=== PATIENT | male | born 1965 | race Asian ===

== ENCOUNTER 2022-09-11 00:10 | Inpatient (IN) | payer MEDICARE, OTHER ==
[~2022-09-11] VITALS: Ht 180.3 cm; Wt 63.0 kg
[2022-09-11] MEDS ORDERED: THIA100T74 PO (00:37)
[2022-09-11] MEDS ORDERED: METF-494 PO (00:37)
[2022-09-11] MEDS ORDERED: LORA2TAB95 PO (00:37)
[2022-09-11] MEDS ORDERED: MULT-594 PO (00:37)
[2022-09-11] MEDS ORDERED: RISP1TAB97 PO (00:37)
[2022-09-11] MEDS ORDERED: FOLI1TAB94 PO (00:37)
[2022-09-11] MEDS ORDERED: IV NORMAL SALINE 1000 ML BAG IV ONE (00:45)
--- NOTE | 2022-09-11 00:47 | NUR ---
1) Covid & MRSA taken and labor custodian was in ER took them to the lab
--- NOTE | 2022-09-11 00:48 | NUR ---
iv 0.9 % stat administered @0005hrs - to the RAC 20g
[2022-09-11 00:59] LABS: HEMATOCRIT 39.3 % (36.7-47.1); MEAN CORPUSCULAR HEMOGLOBIN 27.8 uug (23.8-33.4); MEAN CORPUSCULAR VOLUME 84.6 fL (73.0-96.2); PLATELET COUNT (AUTO) 259 K/uL (152-348)
[2022-09-11 01:19] LABS: CARBON DIOXIDE 27 mmol/L (21-32); CHLORIDE 100 mmol/L (98-107); CREATININE 0.8 mg/dL (0.6-1.3); GLUCOSE 257 mg/dL (74-106); POTASSIUM 3.9 mmol/L (3.5-5.1); UREA NITROGEN, BLOOD 12 mg/dL (7-18)
[2022-09-11 01:22] LABS: THYROID STIMULATING HORMONE 1.483 mIU/mL (0.358-3.740)
[2022-09-11 01:28] LABS: ETHANOL < 3 MG/DL (0-0)
[2022-09-11 01:36] LABS: ALANINE AMINOTRANSFERASE 28 U/L (16-63); ALKALINE PHOSPHATASE 141 U/L (50-136); ASPARTATE AMINOTRANSFERASE 13 U/L (15-37); BILIRUBIN,DIRECT 0.1 mg/dL (0.0-0.2); BILIRUBIN,TOTAL 0.2 mg/dL (0.2-1.0)
[2022-09-11 01:56] LABS: ACETAMINOPHEN < 2.0 ug/mL (10-30)
--- NOTE | 2022-09-11 02:00 | NUR ---
iv ATB administered as prescribed - iv access - saline locked.
[2022-09-11] MEDS ORDERED: IOHEXOL 300MG/ML 100 ML INFUS..BTL ONE (02:09)
[2022-09-11] MEDS ORDERED: IV NORMAL SALINE 250 ML IV ONE (02:09)
[2022-09-11] MEDS ORDERED: SWABABLE VALVE TRANSFER SET EA MC ONE (02:09)
[2022-09-11] MEDS ORDERED: ACETAMINOPHEN ES 500 MG TABLET PO ONE (02:15)
[2022-09-11] MEDS ORDERED: levoFLOXacin 750 MG/D5W 150 ML PIGGYBACK IV ONE (02:15)
[2022-09-11] MEDS ORDERED: LIDOCAINE 2% (GLYDO= UROJET) 10 ML JELLY MM ONE ×2 (02:15→02:32)
[2022-09-11] MEDS ORDERED: ACETAMINOPHEN 650 MG SUPP.RECT RC ONE ×2 (02:29→02:30)
[2022-09-11] MEDS ORDERED: levoFLOXacin 750MG/D5W 150 ML IV ONE (02:31)
[2022-09-11 03:13] LABS: *BILIRUBIN,URIN NEGATIVE (NEGATIVE); *CLARITY,URINE CLEAR (CLEAR); *COLOR,URINE YELLOW (YELLOW); *KETONES,URINE TRACE (NEGATIVE); *UROBILINOGEN,URINE 0.2 E.U./dl (NORMAL); LEUKOCYTE ESTERASE ,URINE NEGATIVE (NEGATIVE); NITRITE, URINE NEGATIVE (NEGATIVE)
[2022-09-11 03:14] LABS: *BLOOD, URINE TRACE (NEGATIVE); UGLUCOSE 3+ (NEGATIVE); WBC,URINE 0-3 /HPF (0-3)
[2022-09-11 03:15] LABS: BACTERIA,URINE NONE SEEN /HPF (NONE SEEN); SQUAMOUS EPITHELIAL CELL,UR NONE SEEN /HPF (NONE SEEN)
[2022-09-11 03:20] LABS: *AMPHETAMINE, URINE NEGATIVE (NEGATIVE); *CANNABINOID, URINE NEGATIVE (NEGATIVE); *COCCAINE, URINE POSITIVE (NEGATIVE); *OPIATE, URINE NEGATIVE (NEGATIVE); *PHENCYCLIDINE SCREEN,URINE NEGATIVE (NEGATIVE)
[2022-09-11] MEDS ORDERED: INSULIN REGULAR, HUMAN 300 UNITS/3 ML VIAL SQ PRN (03:45)
[2022-09-11] MEDS ORDERED: DEXTROSE 50% 50 ML DISP.SYRIN IV PRN (03:45)
[2022-09-11] MEDS ORDERED: ALBUTEROL SULFATE 8 GM HFA.AER.AD IH PRN (03:45)
[2022-09-11] MEDS ORDERED: ONDANSETRON 4 MG/2 ML VIAL IV PRN (03:45)
[2022-09-11] MEDS ORDERED: ACETAMINOPHEN 325 MG TABLET PO PRN (03:45)
[2022-09-11] MEDS ORDERED: INSULIN REGULAR, HUMAN 300 UNIT/3 ML VIAL SQ PRN (03:45)
[2022-09-11] MEDS: BLOOD SUGAR DIAGNOSTIC 1 EACH STRIP VI SCH ×2 (06:42→12:25)
--- NOTE | 2022-09-11 06:46 | NUR ---
1) Tried straight cath to obtain urine - however, scan indicated urine retention - therefore MD ordered langley cather. 2) Langley 12 - inserted - urine sample taken and sent and await results. 3) However, patient pulled on catheter and was bleeding - MD ordered a 3 way tape, however no small size available. 4) MD odered Langley 12 - bolus irrigation attempted and clots removed (small amounts and about 400mls of urine
--- NOTE | 2022-09-11 06:50 | NUR ---
Catheter draining clear amounts of urine - slight bleed around the penal area
--- NOTE | 2022-09-11 06:58 | NUR ---
1) Endorsed care to RN Ellie - confirmed patient is not going to room 215 but to room 211. 2) Ellie is going downstairs to level 2 - will call to confirm transfer. 3) Informed Ellie that BS at 7am was 267 - patient due insulin this morning ( has a sliding scale) 4) Patient remians clinically stable at the time of this report. 5) Will endorse care to ER day shift, who will continue to provide care accordingly.
--- NOTE | 2022-09-11 07:20 | NUR ---
Received report from Jeremiah MCKOY.
--- NOTE | 2022-09-11 07:30 | NUR ---
Received call from Ellie MCKOY, pt will be assigned to Rm 210 and will be received by Shanon MCKOY.
[2022-09-11] MEDS ORDERED: ALBUTEROL SULFATE 2.5 MG/3 ML NEBU NEB PRN (08:00)
--- NOTE | 2022-09-11 08:00 | NUR ---
Transported pt to [facility] via stretcher, accompanied by the 1:1 BRAKE ENGINEER, to Rm 208 per Ketan MCKOY. Pt was alert but disoriented, stable, V/S WNL. Connected to O2 at 2Lpm. Received by Ketan MCKOY.
--- NOTE | 2022-09-11 08:05 | NUR ---
Received from ER via [place], this 56 yo male with the diagnosis of hyperglycemia; delirium, gross hematuria and grave disability on 72 Hours Hold till 09/12/22 1340. Awake, alert, oriented x 3, answers questions appropriately, but mumbles, with eyes close, calm and cooperative with care. Vital signs taken and recorded. Routine admission care done. O2 at 2L/NC. Saline to RFE intact/patent. Monsalve catheter t drainage bag with yellow urine but noted bleeding on penile site. With 1:1 sitter at bedside. Belongings/contraband and room safety check done.
[2022-09-11 08:10] VITALS: BP 104/53
[2022-09-11] MEDS ORDERED: CEFEPIME HCL 2 G in IV DEXTROSE 5% 100 ML IV SCH (09:00)
[2022-09-11] MEDS ORDERED: FLUTICASONE/VILANTEROL 1 EACH BLST.W.DEV INH SCH (09:00)
[2022-09-11] MEDS ORDERED: CEFEPIME HCL 1 G in IV DEXTROSE 5% 50 ML IV SCH (09:00)
[2022-09-11 12:07] VITALS: BP 115/59
[2022-09-11 12:39] LABS: HEMATOCRIT 37.4 % (36.7-47.1)
--- NOTE | 2022-09-11 13:00 | NUR ---
Patient threw water pitcher when request for more food was not granted right away. Screaming when explanation given. Redirected behavior and calmed down after.
[2022-09-11 15:43] VITALS: BP 117/55
--- NOTE | 2022-09-11 16:40 | NUR ---
Cleared medically, with discharge order to MHU. Saline lock removed. Monsalve catheter removed. Report given to Aurea. Transferred via wheelchair with cyber security specialist with belongings and contraband.
[2022-09-12] MEDS ORDERED: ALBU2.5V38 IH (00:08)
[2022-09-12] MEDS ORDERED: SULF1TAB48 PO (00:08)
[2022-09-12] MEDS ORDERED: BLOO-668 IN (00:08)
[2022-09-12] MEDS ORDERED: METF-494 PO (00:08)
[2022-09-12] MEDS ORDERED: GLIP5TAB13 PO (00:08)
[2022-09-12] MEDS ORDERED: FLUT1BLS IH (00:08)
[2022-09-12] MEDS ORDERED: METF-440 PO (14:16)
== END 2022-09-11 17:02 | DRG 637 ==
LOC: EDBD 00:10 → ER 00:29 → TELE 07:44 → GPS 16:49 → TELE 16:58
DX: E11.65 Type 2 diabetes mellitus with hyperglycemia (principal); G93.41 Metabolic encephalopathy; N39.0 Urinary tract infection, site not specified; Z68.1 Body mass index [BMI] 19.9 or less, adult; E44.0 Moderate protein-calorie malnutrition; Z59.00 Homelessness unspecified; E88.09 Other disorders of plasma-protein metabolism, not elsewhere classified; F12.90 Cannabis use, unspecified, uncomplicated; F14.90 Cocaine use, unspecified, uncomplicated; F31.9 Bipolar disorder, unspecified; Z20.822 Contact with and (suspected) exposure to COVID-19; Z79.84 Long term (current) use of oral hypoglycemic drugs
CPT/HCPCS: 36415; 51702; 70450; 71045; 84443; 84484; 85018; 85025; 93005; G0378; G0480; J0692; J1815; J1956; J7040; Q9967

== ENCOUNTER 2022-09-11 18:04 | Inpatient (IN) | payer MEDICARE, OTHER ==
[~2022-09-11] VITALS: Ht 180.3 cm; Wt 71.7 kg
[~2022-09-11 18:04] MED LIST: FOLI1TAB94 PO; LORA2TAB95 PO; METF-494 PO; MULT-594 PO; RISP1TAB97 PO; THIA100T74 PO
[2022-09-11 18:10] VITALS: BP 106/62
[2022-09-11] MEDS ORDERED: MAG HYDROX/AL HYDROX/SIMETH 30 ML LIQUID UDC PO PRN (18:15)
[2022-09-11] MEDS ORDERED: BLOOD SUGAR DIAGNOSTIC 1 EACH STRIP VI ONE (18:15)
[2022-09-11] MEDS ORDERED: MAGNESIUM HYDROXIDE 30 ML LIQUID UDC PO PRN (18:15)
--- NOTE | 2022-09-11 18:21 | NUR ---
Admitted a case of 56 years old male from 4th floor [facility] with history of Hyperglycemia, UTI, acute encephalopathy, bipolar. patient is on 5150 hold status. Patient arrived in a wheel chair accompanied by RN. Initial report given by Shantel MCKOY. On admission patient was cooperative to physical assessment and vital signs. Skin body assessment revealed right toe wound, documented in his chart, wound consult was ordered. Vital signs within normal limits. Patient ambulates with assistance, unsteady gait. Upon face to face, patient is oriented to person and place, confused at times, demanding, fixated on food and snacks, redirectable. Patient denies any suicidal ideations nor any hallucinations or delusions at this moment. Patient was offered brief orientation to unit rules and policies and given copy of patient's rights handbook. Patient belongings were accounted and contrabands removed. Psychiatrist Edgard and Medical physician Robb Burnham were informed and orders were carried out. Patient is free from pain or any discomfort. Bed alarm, side rails up, wheel locks on, safety checks every 15 minutes implemented.
[2022-09-11] MEDS: CLONAZEPAM 0.5 MG TABLET PO PRN (20:42)
--- NOTE | 2022-09-11 20:45 | NUR ---
GPS: Pt.is angry,irritable,agitated,verbally abusive and constantly demanding for food/snacks. Constant re-direction provided by staff. Poor insight to present situation. Non-compliant with his diet. made aware of med.recon needs to be done. Pt.also went to the bathroom to void and noted with moderate amts.of hematuria. Fluids encouraged and carlos.well. Safe environment provided. Behavior monitoring continues. Klonopin 0.5mg PO given at this time.
[2022-09-11 20:53] VITALS: BP 121/58
[2022-09-11] MEDS: TEMAZEPAM 7.5 MG CAPSULE PO PRN (23:31)
[2022-09-11] MEDS: ACETAMINOPHEN 325 MG TABLET PO PRN (23:32)
[2022-09-12] MEDS ORDERED: METF-494 PO (00:08)
[2022-09-12] MEDS ORDERED: SULF1TAB48 PO (00:08)
[2022-09-12] MEDS ORDERED: ALBU2.5V38 IH (00:08)
[2022-09-12] MEDS ORDERED: GLIP5TAB13 PO (00:08)
[2022-09-12] MEDS ORDERED: BLOO-668 IN (00:08)
[2022-09-12] MEDS ORDERED: FLUT1BLS IH (00:08)
--- NOTE | 2022-09-12 06:00 | NUR ---
GPS: Pt.now awake. Less irritable,angry but still with labile mood. Unit rules as well as meal schedules explained to pt.once again and verbalized understanding. Assisted to the bathroom and voided freely clear yellowish colored urine. No further hematuria noted at this time. Safety emphasized. Re-directed prn. Will continue to monitor.
[2022-09-12 07:30] VITALS: BP 108/71
[2022-09-12 07:48] LABS: HEMATOCRIT 38.6 % (36.7-47.1); MEAN CORPUSCULAR HEMOGLOBIN 28.2 uug (23.8-33.4); MEAN CORPUSCULAR VOLUME 85.4 fL (73.0-96.2); PLATELET COUNT (AUTO) 277 K/uL (152-348)
[2022-09-12 07:54] LABS: CREATININE 0.8 mg/dL (0.6-1.3); POTASSIUM 4.5 mmol/L (3.5-5.1)
[2022-09-12] MEDS ORDERED: DEXTROSE 50% 50 ML DISP.SYRIN IV PRN (09:00)
--- NOTE | 2022-09-12 10:00 | NUR ---
DI Initial Discharge Note: Pt currently appears homeless and does not recall a last address. Pt did not have any family contact information at this time. DI will continue to work with pt and MD to ensure a safe and proper discharge plan.
--- NOTE | 2022-09-12 10:08 | NUR ---
Firearms Report: Electric Truck Operator completed and submitted a [employer] firearms report for 5150 grave disability certifications. A copy of report has been placed in patient chart.
[2022-09-12] MEDS: BLOOD SUGAR DIAGNOSTIC 1 EACH STRIP VI SCH ×3 (11:48→20:37)
[2022-09-12] MEDS: INSULIN REGULAR, HUMAN 300 UNIT/3 ML VIAL SQ PRN ×3 (12:06→17:30)
--- NOTE | 2022-09-12 12:10 | NUR ---
Patient's blood glucose is 595, Cold Meat Cook was informed, and ordered 10 units of regular insulin
--- NOTE | 2022-09-12 12:42 | NUR ---
WOUND CARE CONSULT; PT PRESENTS WITH REDNESS/DRY WOUND TO RT GREAT TOE AMPUTATION SITE, PRESENT ON ADMISSION. PT SCREAMING, ANGRY AND AGITATED. DPM CONSULT CALLED TO DR BELCZYK. BRYSON IN AGREEMENT WITH PLAN OF CARE.
[2022-09-12] MEDS: CLONAZEPAM 0.5 MG TABLET PO PRN ×2 (13:15→20:32)
[2022-09-12] MEDS ORDERED: OLANZAPINE ZYDIS 5 MG TAB.RAPDIS PO SCH (14:15)
[2022-09-12] MEDS ORDERED: METF-440 PO (14:16)
[2022-09-12] MEDS: DIVALPROEX 250 MG TABLET.DR PO SCH ×2 (14:37→20:32)
[2022-09-12] MEDS: risperiDONE 1 MG TABLET PO SCH ×2 (14:37→20:32)
[2022-09-12 16:00] VITALS: BP 115/64
--- NOTE | 2022-09-12 16:22 | NUR ---
Patient has crying spells, depressed, fixated on food and snacks, anxious and agitated at times, pacing in the hallway looking for food, not engaged in group activities. A/O X Emotional support provided. Fall and safety precautions implemented.
--- NOTE | 2022-09-12 16:46 | NUR ---
Patient blood glucose exceeds 600 reading. Gum Remover was informed and ordered 15 units of regular insulin, blood glucose will be recheck in 30 minutes.
[2022-09-12] MEDS: METFORMIN HCL 500 MG TABLET PO SCH (17:16)
[2022-09-12] MEDS: glipiZIDE 5 MG TABLET PO SCH (17:17)
[2022-09-12] MEDS: SULFAMETH/TRIMETH 800/160 MG TABLET PO SCH (17:17)
--- NOTE | 2022-09-12 17:26 | NUR ---
Patient blood glucose is still over 600, glipizide and metformin given as scheduled. Shelter Advocate informed and prescribed 10 units more of regular insulin.
[2022-09-12] MEDS ORDERED: HALOPERIDOL LACTATE 5 MG/1 ML VIAL IM ONE (18:00)
[2022-09-12] MEDS ORDERED: LORAZEPAM 2 MG/1 ML VIAL IM ONE (18:00)
[2022-09-12] MEDS ORDERED: diphenhydrAMINE 50 MG/1 ML VIAL IM ONE (18:00)
--- NOTE | 2022-09-12 18:22 | NUR ---
Patient became aggressive, agitated, combative, striking out to others, throwing food on the floor while visitors and other patients were next to him in the dinning area. Psychiatrist was called and ordered Ativan 2 mg IM, Haldol 5 mg IM, Benadryl 25 mg IM. Security was called and 5 people were necessary to administer the medication, but no force needed. Reassurance given. Fall and safety precautions implemented.
[2022-09-12 20:19] VITALS: BP 100/61
[2022-09-12] MEDS: INSULIN REGULAR, HUMAN 300 UNITS/3 ML VIAL SQ PRN (20:37)
[2022-09-12] MEDS: INSULIN GLARGINE,HUM 300 UNITS/3 ML CARTRIDGE SQ SCH (20:41)
[2022-09-13] MEDS: TEMAZEPAM 7.5 MG CAPSULE PO PRN ×2 (01:34→23:31)
--- NOTE | 2022-09-13 02:23 | NUR ---
Received patient in the Sary chair. Restless and demanding food. The blood sugar was checked and elevated. Insulin was given per order. The sugar was rechecked a hour later and still was elevated. Sanju Vargas OUTSIDE MAINTENANCE WORKER was notified. No new orders needed. The patient was anxious, loud and restless despite receiving an IM injection on the last shift. PRN medications given as needed. Safety Stratiges are in place, VS are stable. Patient assisted out of bed to the bathroom once so far. Continuing to monitor for behavior escalation and compliance. No acute issues at this time.
[2022-09-13] MEDS: BLOOD SUGAR DIAGNOSTIC 1 EACH STRIP VI SCH ×4 (06:16→20:44)
[2022-09-13] MEDS: INSULIN REGULAR, HUMAN 300 UNIT/3 ML VIAL SQ PRN ×3 (07:29→17:02)
[2022-09-13 08:04] VITALS: BP 109/57
[2022-09-13] MEDS: SULFAMETH/TRIMETH 800/160 MG TABLET PO SCH ×2 (08:08→16:36)
[2022-09-13] MEDS: risperiDONE 1 MG TABLET PO SCH ×2 (08:08→20:44)
[2022-09-13] MEDS: METFORMIN HCL 500 MG TABLET PO SCH ×2 (08:08→17:06)
[2022-09-13] MEDS: glipiZIDE 5 MG TABLET PO SCH ×2 (08:08→16:36)
[2022-09-13] MEDS: DIVALPROEX 250 MG TABLET.DR PO SCH ×3 (08:08→16:36)
[2022-09-13] MEDS: THIAMINE HCL 100 MG TABLET PO SCH (08:10)
[2022-09-13] MEDS: FLUTICASONE/VILANTEROL 1 EACH BLST.W.DEV IH SCH (08:10)
[2022-09-13] MEDS: FOLIC ACID 1 MG TABLET PO SCH (08:10)
[2022-09-13] MEDS: MULTIVITAMINS,THERAPEUTIC TABLET PO SCH (08:10)
[2022-09-13] MEDS: INSULIN GLARGINE,HUM 300 UNITS/3 ML CARTRIDGE SQ SCH ×2 (08:19→20:52)
[2022-09-13] MEDS ORDERED: OLANZAPINE 10 MG VIAL IM ONE (13:15)
[2022-09-13 16:25] VITALS: BP 132/69
[2022-09-13] MEDS: INSULIN REGULAR, HUMAN 300 UNITS/3 ML VIAL SQ PRN (20:47)
[2022-09-13 21:18] VITALS: BP 132/76
--- NOTE | 2022-09-14 06:45 | NUR ---
GPS: Pt's blood sugar was checked at this time and registered as "HI". Discovered pt.to have eaten snacks/juices that he has stashed. Pt.is non-compliant with his diet and was even witnessed to have been going through the trash last night to find uneaten food. Dr. Kwon notified. Awaiting MD to call back. Pt.placed on a chang-chair in front of nurses station for close observation.
[2022-09-14] MEDS: INSULIN REGULAR, HUMAN 300 UNIT/3 ML VIAL SQ PRN ×4 (07:01→21:41)
[2022-09-14] MEDS: BLOOD SUGAR DIAGNOSTIC 1 EACH STRIP VI SCH ×5 (07:03→21:50)
[2022-09-14 07:56] VITALS: BP 137/74
[2022-09-14] MEDS: glipiZIDE 5 MG TABLET PO SCH ×2 (08:50→16:42)
[2022-09-14] MEDS: SULFAMETH/TRIMETH 800/160 MG TABLET PO SCH ×2 (08:50→16:42)
[2022-09-14] MEDS: THIAMINE HCL 100 MG TABLET PO SCH (08:50)
[2022-09-14] MEDS: FOLIC ACID 1 MG TABLET PO SCH (08:50)
[2022-09-14] MEDS: METFORMIN HCL 500 MG TABLET PO SCH ×2 (08:50→16:44)
[2022-09-14] MEDS: DIVALPROEX 250 MG TABLET.DR PO SCH ×3 (08:50→16:55)
[2022-09-14] MEDS: risperiDONE 1 MG TABLET PO SCH ×3 (08:50→16:43)
[2022-09-14] MEDS: MULTIVITAMINS,THERAPEUTIC TABLET PO SCH (08:50)
[2022-09-14] MEDS: FLUTICASONE/VILANTEROL 1 EACH BLST.W.DEV IH SCH (08:51)
[2022-09-14] MEDS: INSULIN GLARGINE,HUM 300 UNITS/3 ML CARTRIDGE SQ SCH ×2 (08:53→21:39)
[2022-09-14 16:40] VITALS: BP 127/64
--- NOTE | 2022-09-14 18:09 | NUR ---
Received patient is alert and oriented x3-4,fixated on food and snacks, anxious and agitated at times, pacing in the hallway looking for food,attempted to break refrigerator for more food to eat, Acc-check done with insulin sliding scale covered not engaged in group activities. Fall and safety precautions implemented.
[2022-09-14 20:04] VITALS: BP 132/72
[2022-09-14] MEDS: CLONAZEPAM 0.5 MG TABLET PO PRN (21:50)
[2022-09-15] MEDS: CLONAZEPAM 0.5 MG TABLET PO PRN ×4 (01:44→20:35)
[2022-09-15] MEDS: TEMAZEPAM 7.5 MG CAPSULE PO PRN (01:44)
--- NOTE | 2022-09-15 01:47 | NUR ---
Even after repeated education on DMII, his extremely elevated RBS findings, patient continues to ask/beg for, and steal food from other residents rooms, the garbage bags. Pt even broke into the unit's refrigerator. Staff on this shift resorted in removing all food from the refrigerator in the recreational room and transferred into the refrigerator in the nursing office for safe keeping. Pt does not care weather or not he is breaking the unit's rules, and refuses to obey direction from staff regarding over-eating.
[2022-09-15] MEDS: BLOOD SUGAR DIAGNOSTIC 1 EACH STRIP VI SCH ×4 (08:09→20:44)
[2022-09-15 08:10] VITALS: BP 130/74
[2022-09-15] MEDS: INSULIN REGULAR, HUMAN 300 UNIT/3 ML VIAL SQ PRN ×4 (08:25→20:40)
[2022-09-15] MEDS: INSULIN GLARGINE,HUM 300 UNITS/3 ML CARTRIDGE SQ SCH ×2 (08:26→20:41)
[2022-09-15] MEDS: FOLIC ACID 1 MG TABLET PO SCH (08:28)
[2022-09-15] MEDS: DIVALPROEX 250 MG TABLET.DR PO SCH ×3 (08:28→17:17)
[2022-09-15] MEDS: glipiZIDE 5 MG TABLET PO SCH ×2 (08:28→17:18)
[2022-09-15] MEDS: METFORMIN HCL 500 MG TABLET PO SCH ×2 (08:29→17:18)
[2022-09-15] MEDS: SULFAMETH/TRIMETH 800/160 MG TABLET PO SCH ×2 (08:29→17:18)
[2022-09-15] MEDS: THIAMINE HCL 100 MG TABLET PO SCH (08:29)
[2022-09-15] MEDS: MULTIVITAMINS,THERAPEUTIC TABLET PO SCH (08:29)
[2022-09-15] MEDS: risperiDONE 1 MG TABLET PO SCH ×3 (08:29→17:18)
[2022-09-15] MEDS: FLUTICASONE/VILANTEROL 1 EACH BLST.W.DEV IH SCH (08:30)
[2022-09-15] MEDS: SODIUM HYPOCHLORITE 0.125% (QUARTER STRENGTH) 473 ML BOTTLE TP SCH (08:31)
[2022-09-15] MEDS: SILVER SULFADIAZINE 1% CREAM 50 GM TP SCH (08:31)
[2022-09-15 16:10] VITALS: BP 96/66
--- NOTE | 2022-09-15 18:06 | NUR ---
patient is alert and oriented x3-4,fixated on food and snacks, anxious and agitated at times, pacing in the hallway looking for food and snacks,joan compliant today with medication and food.
[2022-09-15 19:49] VITALS: BP 110/68
[2022-09-15] MEDS: ACETAMINOPHEN 325 MG TABLET PO PRN (20:35)
[2022-09-16] MEDS: TEMAZEPAM 7.5 MG CAPSULE PO PRN (01:58)
[2022-09-16] MEDS: CLONAZEPAM 0.5 MG TABLET PO PRN ×3 (01:58→20:57)
--- NOTE | 2022-09-16 02:06 | NUR ---
Pt is non-compliant with POC r/t a controlled carbohydrate diet d/t elevated RBS findings. Pt refuses to be re-directed and continues to beg for food/snacks. Pt becomes verbally assaultive and irritable towards staff when trying to be educated on the importance of not over-eating d/t his current condition.
[2022-09-16] MEDS: BLOOD SUGAR DIAGNOSTIC 1 EACH STRIP VI SCH ×4 (06:13→20:49)
[2022-09-16 08:00] VITALS: BP 111/62
[2022-09-16] MEDS: METFORMIN HCL 500 MG TABLET PO SCH ×2 (09:22→17:02)
[2022-09-16] MEDS: FOLIC ACID 1 MG TABLET PO SCH (09:22)
[2022-09-16] MEDS: DIVALPROEX 250 MG TABLET.DR PO SCH ×3 (09:22→16:55)
[2022-09-16] MEDS: MULTIVITAMINS,THERAPEUTIC TABLET PO SCH (09:22)
[2022-09-16] MEDS: glipiZIDE 5 MG TABLET PO SCH ×2 (09:22→16:52)
[2022-09-16] MEDS: SULFAMETH/TRIMETH 800/160 MG TABLET PO SCH ×2 (09:22→16:52)
[2022-09-16] MEDS: risperiDONE 1 MG TABLET PO SCH ×3 (09:22→16:52)
[2022-09-16] MEDS: FLUTICASONE/VILANTEROL 1 EACH BLST.W.DEV IH SCH (09:23)
[2022-09-16] MEDS: THIAMINE HCL 100 MG TABLET PO SCH (09:24)
[2022-09-16] MEDS: SILVER SULFADIAZINE 1% CREAM 50 GM TP SCH (09:25)
[2022-09-16] MEDS: INSULIN REGULAR, HUMAN 300 UNIT/3 ML VIAL SQ PRN ×4 (09:28→20:55)
[2022-09-16] MEDS: INSULIN GLARGINE,HUM 300 UNITS/3 ML CARTRIDGE SQ SCH ×2 (09:43→20:56)
--- NOTE | 2022-09-16 10:30 | NUR ---
DI PC Hearing: Patient had 5250 probable cause hearing today and it was upheld for grave disability.
[2022-09-16] MEDS: SODIUM HYPOCHLORITE 0.125% (QUARTER STRENGTH) 473 ML BOTTLE TP SCH (10:47)
--- NOTE | 2022-09-16 15:04 | NUR ---
Received patient pacing in the hallway. A/O X 3 to person, place, situation. Patient is cooperative with nursing care and compliant with medications. Patient gets irritable and anxious at times. Klonopin 0.5 mg is given at 13:09, will be monitored for effectiveness. Patient blood glucose is 381, 15 units of regular insulin is given per sliding scale. Patient is encourage to verbalize concerns. Fall and safety precautions implemented..
[2022-09-16 16:04] VITALS: BP 123/72
[2022-09-16 20:01] VITALS: BP 110/68
[2022-09-17] MEDS: BLOOD SUGAR DIAGNOSTIC 1 EACH STRIP VI SCH ×4 (05:56→20:30)
[2022-09-17 07:30] VITALS: BP 115/74
[2022-09-17] MEDS: glipiZIDE 5 MG TABLET PO SCH ×2 (08:51→16:20)
[2022-09-17] MEDS: DIVALPROEX 250 MG TABLET.DR PO SCH ×3 (08:51→16:20)
[2022-09-17] MEDS: FOLIC ACID 1 MG TABLET PO SCH (08:52)
[2022-09-17] MEDS: SULFAMETH/TRIMETH 800/160 MG TABLET PO SCH ×2 (08:52→16:20)
[2022-09-17] MEDS: risperiDONE 1 MG TABLET PO SCH ×3 (08:52→16:20)
[2022-09-17] MEDS: METFORMIN HCL 500 MG TABLET PO SCH ×2 (08:52→17:07)
[2022-09-17] MEDS: FLUTICASONE/VILANTEROL 1 EACH BLST.W.DEV IH SCH (08:52)
[2022-09-17] MEDS: THIAMINE HCL 100 MG TABLET PO SCH (08:52)
[2022-09-17] MEDS: MULTIVITAMINS,THERAPEUTIC TABLET PO SCH (08:52)
[2022-09-17] MEDS: INSULIN REGULAR, HUMAN 300 UNIT/3 ML VIAL SQ PRN ×3 (08:55→17:07)
[2022-09-17] MEDS: SODIUM HYPOCHLORITE 0.125% (QUARTER STRENGTH) 473 ML BOTTLE TP SCH (08:56)
[2022-09-17] MEDS: SILVER SULFADIAZINE 1% CREAM 50 GM TP SCH (08:56)
[2022-09-17] MEDS: INSULIN GLARGINE,HUM 300 UNITS/3 ML CARTRIDGE SQ SCH ×2 (09:03→20:33)
--- NOTE | 2022-09-17 11:00 | NUR ---
Patient is bleeding from his penis, and states that is burning when he urinates, Seed Cleaner Operator was informed, no further orders given.
[2022-09-17] MEDS: CLONAZEPAM 0.5 MG TABLET PO PRN (13:15)
--- NOTE | 2022-09-17 14:58 | NUR ---
Received patient pacing in the hallway. A/O X 3 to person, place, environment. Patient is compliant with medications. Patient gets irritable when snacks are not given. Klonopin 0.5 mg is given at 13:15, effective. Patient blood glucose is 234, 6 units of regular insulin is given per sliding scale. Patient is encourage to vent feelings and emotions. Fall and safety precautions implemented..
[2022-09-17 16:00] VITALS: BP 108/56
[2022-09-17 20:17] VITALS: BP 119/67
[2022-09-17] MEDS: INSULIN REGULAR, HUMAN 300 UNITS/3 ML VIAL SQ PRN (20:31)
[2022-09-17] MEDS: TEMAZEPAM 7.5 MG CAPSULE PO PRN (23:35)
--- NOTE | 2022-09-18 06:41 | NUR ---
GPS: Pt.slept 6 hrs.last night. B.S. at this time is 261mg/dl. Continues to be fixated on food/snacks. Re-directed prn. Continues health teachings given by staff regarding importance of adhering to his diet. Needs attended. Will continue to monitor.
[2022-09-18] MEDS: BLOOD SUGAR DIAGNOSTIC 1 EACH STRIP VI SCH ×4 (06:45→20:43)
[2022-09-18 07:30] VITALS: BP 115/63
[2022-09-18] MEDS: glipiZIDE 5 MG TABLET PO SCH ×2 (08:21→16:44)
[2022-09-18] MEDS: METFORMIN HCL 500 MG TABLET PO SCH ×2 (08:21→18:17)
[2022-09-18] MEDS: MULTIVITAMINS,THERAPEUTIC TABLET PO SCH (08:21)
[2022-09-18] MEDS: DIVALPROEX 250 MG TABLET.DR PO SCH ×3 (08:21→16:45)
[2022-09-18] MEDS: SULFAMETH/TRIMETH 800/160 MG TABLET PO SCH ×2 (08:21→16:45)
[2022-09-18] MEDS: FOLIC ACID 1 MG TABLET PO SCH (08:21)
[2022-09-18] MEDS: THIAMINE HCL 100 MG TABLET PO SCH (08:21)
[2022-09-18] MEDS: risperiDONE 1 MG TABLET PO SCH ×3 (08:21→16:45)
[2022-09-18] MEDS: SILVER SULFADIAZINE 1% CREAM 50 GM TP SCH (08:22)
[2022-09-18] MEDS: FLUTICASONE/VILANTEROL 1 EACH BLST.W.DEV IH SCH (08:22)
[2022-09-18] MEDS: SODIUM HYPOCHLORITE 0.125% (QUARTER STRENGTH) 473 ML BOTTLE TP SCH (08:22)
[2022-09-18] MEDS: INSULIN REGULAR, HUMAN 300 UNIT/3 ML VIAL SQ PRN ×3 (08:31→18:18)
[2022-09-18] MEDS: INSULIN GLARGINE,HUM 300 UNITS/3 ML CARTRIDGE SQ SCH ×2 (08:34→20:49)
--- NOTE | 2022-09-18 15:04 | NUR ---
Received patient sleeping in his room. A/O X 1 to person. Patient is needy, demanding, fixated on snacks, cooperative with nursing care, compliant with medications. Patient blood glucose 233, 6 units of regular insulin given per sliding scale. Ambulates independently. Requires minimal assistance with ADL. Patient is encourage to vent feelings and emotions. Fall and safety precautions implemented. Addendum: 09/18/22 at 1515 by MAMADOU DELGADO RN Patient is A/O X 3 to person, place, situation.
[2022-09-18 16:00] VITALS: BP 128/74
[2022-09-18 20:09] VITALS: BP 115/64
[2022-09-18] MEDS: INSULIN REGULAR, HUMAN 300 UNITS/3 ML VIAL SQ PRN (20:46)
[2022-09-19] MEDS: TEMAZEPAM 7.5 MG CAPSULE PO PRN ×2 (00:53→20:52)
[2022-09-19] MEDS: BLOOD SUGAR DIAGNOSTIC 1 EACH STRIP VI SCH ×4 (06:53→20:34)
[2022-09-19 07:30] VITALS: BP 111/68
[2022-09-19] MEDS: INSULIN GLARGINE,HUM 300 UNITS/3 ML CARTRIDGE SQ SCH ×2 (08:35→20:44)
[2022-09-19] MEDS: INSULIN REGULAR, HUMAN 300 UNIT/3 ML VIAL SQ PRN ×3 (08:37→17:16)
[2022-09-19] MEDS: glipiZIDE 5 MG TABLET PO SCH ×2 (08:38→17:17)
[2022-09-19] MEDS: SULFAMETH/TRIMETH 800/160 MG TABLET PO SCH (08:38)
[2022-09-19] MEDS: CLONAZEPAM 0.5 MG TABLET PO PRN (08:38)
[2022-09-19] MEDS: METFORMIN HCL 500 MG TABLET PO SCH ×2 (08:38→17:18)
[2022-09-19] MEDS: FLUTICASONE/VILANTEROL 1 EACH BLST.W.DEV IH SCH (08:39)
[2022-09-19] MEDS: FOLIC ACID 1 MG TABLET PO SCH (08:39)
[2022-09-19] MEDS: risperiDONE 1 MG TABLET PO SCH ×3 (08:39→17:17)
[2022-09-19] MEDS: THIAMINE HCL 100 MG TABLET PO SCH (08:39)
[2022-09-19] MEDS: MULTIVITAMINS,THERAPEUTIC TABLET PO SCH (08:39)
[2022-09-19] MEDS: DIVALPROEX 250 MG TABLET.DR PO SCH ×3 (08:40→17:17)
[2022-09-19] MEDS: SODIUM HYPOCHLORITE 0.125% (QUARTER STRENGTH) 473 ML BOTTLE TP SCH (08:40)
[2022-09-19] MEDS: SILVER SULFADIAZINE 1% CREAM 50 GM TP SCH (08:41)
[2022-09-19 16:00] VITALS: BP 129/71
--- NOTE | 2022-09-19 16:26 | NUR ---
patient is alert and oriented x3-4,fixated on food and snacks, anxious and agitated at times, pacing in the hallway looking for food, Acc-check done with insulin sliding scale covered not engaged in group activities. Fall and safety precautions implemented.
[2022-09-19] MEDS: INSULIN REGULAR, HUMAN 300 UNITS/3 ML VIAL SQ PRN (20:39)
[2022-09-19 21:05] VITALS: BP 129/68
[2022-09-20] MEDS: CLONAZEPAM 0.5 MG TABLET PO PRN ×4 (03:15→21:05)
[2022-09-20] MEDS: BLOOD SUGAR DIAGNOSTIC 1 EACH STRIP VI SCH ×4 (06:26→20:57)
[2022-09-20] MEDS: INSULIN GLARGINE,HUM 300 UNITS/3 ML CARTRIDGE SQ SCH ×2 (08:11→21:05)
[2022-09-20] MEDS: INSULIN REGULAR, HUMAN 300 UNIT/3 ML VIAL SQ PRN ×4 (08:13→21:02)
[2022-09-20] MEDS: risperiDONE 1 MG TABLET PO SCH ×3 (08:15→16:15)
[2022-09-20] MEDS: FOLIC ACID 1 MG TABLET PO SCH (08:15)
[2022-09-20] MEDS: THIAMINE HCL 100 MG TABLET PO SCH (08:15)
[2022-09-20] MEDS: glipiZIDE 5 MG TABLET PO SCH ×2 (08:15→16:15)
[2022-09-20] MEDS: METFORMIN HCL 500 MG TABLET PO SCH ×2 (08:15→16:15)
[2022-09-20] MEDS: MULTIVITAMINS,THERAPEUTIC TABLET PO SCH (08:15)
[2022-09-20] MEDS: DIVALPROEX 250 MG TABLET.DR PO SCH ×3 (08:15→16:48)
[2022-09-20] MEDS: SODIUM HYPOCHLORITE 0.125% (QUARTER STRENGTH) 473 ML BOTTLE TP SCH (08:16)
[2022-09-20] MEDS: FLUTICASONE/VILANTEROL 1 EACH BLST.W.DEV IH SCH (08:16)
[2022-09-20] MEDS: SILVER SULFADIAZINE 1% CREAM 50 GM TP SCH (08:16)
--- NOTE | 2022-09-20 15:11 | NUR ---
Patient is alert and oriented Med.compliant. Remains non-compliant with his diet. blood sugar monitoring with sliding scale covered Safety emphasized.
[2022-09-20 16:08] VITALS: BP 117/70
[2022-09-20 20:24] VITALS: BP 121/58
--- NOTE | 2022-09-21 04:48 | NUR ---
Pt is compliant taking medications and receiving treatment. Pt still continues to beg for more food and snacks. After repeated re-education and re-direction, pt can becomes compliant.
[2022-09-21 08:20] VITALS: BP 121/68
[2022-09-21] MEDS: BLOOD SUGAR DIAGNOSTIC 1 EACH STRIP VI SCH ×4 (08:21→21:02)
[2022-09-21] MEDS: glipiZIDE 5 MG TABLET PO SCH ×2 (08:48→16:48)
[2022-09-21] MEDS: METFORMIN HCL 500 MG TABLET PO SCH ×2 (08:48→17:12)
[2022-09-21] MEDS: THIAMINE HCL 100 MG TABLET PO SCH (08:48)
[2022-09-21] MEDS: DIVALPROEX 250 MG TABLET.DR PO SCH (08:49)
[2022-09-21] MEDS: MULTIVITAMINS,THERAPEUTIC TABLET PO SCH (08:49)
[2022-09-21] MEDS: SILVER SULFADIAZINE 1% CREAM 50 GM TP SCH (08:49)
[2022-09-21] MEDS: risperiDONE 1 MG TABLET PO SCH ×3 (08:49→16:48)
[2022-09-21] MEDS: FOLIC ACID 1 MG TABLET PO SCH (08:49)
[2022-09-21] MEDS: SODIUM HYPOCHLORITE 0.125% (QUARTER STRENGTH) 473 ML BOTTLE TP SCH (08:50)
[2022-09-21] MEDS: INSULIN REGULAR, HUMAN 300 UNIT/3 ML VIAL SQ PRN ×4 (08:55→20:40)
[2022-09-21] MEDS: FLUTICASONE/VILANTEROL 1 EACH BLST.W.DEV IH SCH (08:56)
[2022-09-21] MEDS: INSULIN GLARGINE,HUM 300 UNITS/3 ML CARTRIDGE SQ SCH ×2 (09:04→20:42)
[2022-09-21] MEDS: CLONAZEPAM 0.5 MG TABLET PO PRN ×2 (12:36→20:35)
--- NOTE | 2022-09-21 12:45 | NUR ---
Patient blood glucose is 414, Medical Lab Specialist ordered 20 units of regular insulin.
--- NOTE | 2022-09-21 14:33 | NUR ---
Received patient awake in the hallway. Patient is A/O X 3 to person, place, situation. Patient is fixated on food and snacks, demanding, needy, complaint with medications. Patient ambulates without assistance, requires minimal assistance with ADL, continent. Patient is encourage to verbalize concerns. Fall and safety precautions implemented.
[2022-09-21 16:16] VITALS: BP 129/76
[2022-09-21] MEDS: DIVALPROEX 500 MG TABLET.DR PO SCH (16:47)
[2022-09-21] MEDS ORDERED: DIVALPROEX 250 MG TABLET.DR PO SCH (17:00)
[2022-09-21 19:56] VITALS: BP 132/66
[2022-09-21] MEDS: ACETAMINOPHEN 325 MG TABLET PO PRN (20:34)
[2022-09-22] MEDS: TEMAZEPAM 7.5 MG CAPSULE PO PRN (00:07)
[2022-09-22] MEDS: BLOOD SUGAR DIAGNOSTIC 1 EACH STRIP VI SCH ×4 (06:24→20:27)
[2022-09-22 07:51] VITALS: BP 137/83
[2022-09-22] MEDS: INSULIN GLARGINE,HUM 300 UNITS/3 ML CARTRIDGE SQ SCH ×2 (08:25→20:33)
[2022-09-22] MEDS: INSULIN REGULAR, HUMAN 300 UNIT/3 ML VIAL SQ PRN ×3 (08:27→17:49)
[2022-09-22] MEDS: METFORMIN HCL 500 MG TABLET PO SCH ×2 (08:39→17:49)
[2022-09-22] MEDS: FOLIC ACID 1 MG TABLET PO SCH (08:39)
[2022-09-22] MEDS: DIVALPROEX 500 MG TABLET.DR PO SCH ×2 (08:39→17:49)
[2022-09-22] MEDS: glipiZIDE 5 MG TABLET PO SCH ×2 (08:39→17:50)
[2022-09-22] MEDS: MULTIVITAMINS,THERAPEUTIC TABLET PO SCH (08:39)
[2022-09-22] MEDS: risperiDONE 1 MG TABLET PO SCH ×3 (08:39→17:49)
[2022-09-22] MEDS: FLUTICASONE/VILANTEROL 1 EACH BLST.W.DEV IH SCH (08:40)
[2022-09-22] MEDS: THIAMINE HCL 100 MG TABLET PO SCH (08:41)
[2022-09-22] MEDS: SODIUM HYPOCHLORITE 0.125% (QUARTER STRENGTH) 473 ML BOTTLE TP SCH (08:42)
[2022-09-22] MEDS: SILVER SULFADIAZINE 1% CREAM 50 GM TP SCH (08:42)
[2022-09-22 16:09] VITALS: BP 115/69
[2022-09-22] MEDS: CLONAZEPAM 0.5 MG TABLET PO PRN (17:49)
--- NOTE | 2022-09-22 18:24 | NUR ---
Patient is alert and oriented Med.compliant. Remains non-compliant with his diet. blood sugar monitoring with sliding scale covered Safety emphasized.
[2022-09-22 20:13] VITALS: BP 140/75
[2022-09-22] MEDS: INSULIN REGULAR, HUMAN 300 UNITS/3 ML VIAL SQ PRN (20:45)
--- NOTE | 2022-09-22 21:38 | NUR ---
GPS: Med.compliant. Continues to be non-compliant with his diet despite numerous health teachings by staff. Less anxious and easily re-directed. Safety emphasized.
[2022-09-23] MEDS: CLONAZEPAM 0.5 MG TABLET PO PRN ×2 (03:55→11:58)
[2022-09-23] MEDS: BLOOD SUGAR DIAGNOSTIC 1 EACH STRIP VI SCH ×2 (06:34→11:52)
[2022-09-23 07:28] VITALS: BP 111/64
[2022-09-23] MEDS: METFORMIN HCL 500 MG TABLET PO SCH (08:21)
[2022-09-23] MEDS: MULTIVITAMINS,THERAPEUTIC TABLET PO SCH (08:21)
[2022-09-23] MEDS: FOLIC ACID 1 MG TABLET PO SCH (08:22)
[2022-09-23] MEDS: glipiZIDE 5 MG TABLET PO SCH (08:22)
[2022-09-23] MEDS: DIVALPROEX 500 MG TABLET.DR PO SCH (08:22)
[2022-09-23] MEDS: FLUTICASONE/VILANTEROL 1 EACH BLST.W.DEV IH SCH (08:22)
[2022-09-23] MEDS: risperiDONE 1 MG TABLET PO SCH ×2 (08:22→11:58)
[2022-09-23] MEDS: THIAMINE HCL 100 MG TABLET PO SCH (08:22)
[2022-09-23] MEDS: INSULIN GLARGINE,HUM 300 UNITS/3 ML CARTRIDGE SQ SCH (08:24)
[2022-09-23] MEDS: INSULIN REGULAR, HUMAN 300 UNIT/3 ML VIAL SQ PRN ×2 (08:28→11:54)
[2022-09-23] MEDS: SILVER SULFADIAZINE 1% CREAM 50 GM TP SCH (08:34)
[2022-09-23] MEDS: SODIUM HYPOCHLORITE 0.125% (QUARTER STRENGTH) 473 ML BOTTLE TP SCH (08:34)
--- NOTE | 2022-09-23 09:32 | NUR ---
DI Discharge Note: Pt will be discharged to [facility] located at [address] [place] [address] ([phone]) via Ambulance transportation at 1PM. DI spoke with admin coordinator, Gilma ([phone]) at the facility who states they are ready to accept the patient today. Pt is aware and agreeable with discharge plan. Pt does not have any family contact at this time. Pt is alert and oriented x4, is unable to plan for self-care at this time. However, pt is willing to accept care at SNF. Pt denies any suicidal or homicidal ideation. Pt will follow-up at the facility with Psychiatrist, Dr. Rene and Manufacturing Software Engineer, Dr. Mccord. Pt presents with calm mood and congruent affect. Pt is cooperative with care. PHARMACY: [facility] ([phone]) [id number] [facility] [id number].
--- NOTE | 2022-09-23 14:12 | NUR ---
Pt will be discharged to [facility] located at [address] [place] [address] ([phone]) via Ambulance transportation at 1PM. SW spoke with admin coordinator, Gilma ([phone]) at the facility who states they are ready to accept the patient today. Pt is aware and agreeable with discharge plan. Pt does not have any family contact at this time. Pt is alert and oriented x4, is unable to plan for self-care at this time. However, pt is willing to accept care at SNF. Pt denies any suicidal or homicidal ideation. Pt will follow-up at the facility with Psychiatrist, Dr. Rene and Special Delivery Messenger, Dr. Mccord. Pt presents with calm mood and congruent affect. Pt is cooperative with care. PHARMACY: [facility] ([phone]) [address] [facility] [address].
--- NOTE | 2022-09-23 14:14 | NUR ---
Discharged patient to [facility] via Ambulance transportation at 1PM. Pt is aware and agreeable with discharge plan. Pt does not have any family contact at this time. Pt is alert and oriented x4, is unable to plan for self-care at this time.all personal belonging returned to patient ,report called in to Asuncion MCKOY air cargo ground crew supervisor . Pt denies any suicidal or homicidal ideation. Pt will follow-up at the facility with Psychiatrist, Dr. Rene and Drying Oven Attendant
[2022-09-23] MEDS ORDERED: INSULIN GLARGINE,HUM 300 UNITS/3 ML CARTRIDGE SQ SCH (21:00)
== END 2022-09-23 14:22 | DRG 885 ==
LOC: GPS 18:04
PROVIDERS: ADMIT Psychiatry & Neurology Psychiatry; ATTEND Nurse Practitioner Acute Care
PROC: 0HBRXZZ Excision of Toe Nail, External Approach (ICD-10-PCS; principal; 2022-09-14)
DX: F25.0 Schizoaffective disorder, bipolar type (principal); E11.65 Type 2 diabetes mellitus with hyperglycemia; J18.9 Pneumonia, unspecified organism; L97.429 Non-pressure chronic ulcer of left heel and midfoot with unspecified severity; E11.621 Type 2 diabetes mellitus with foot ulcer; L97.519 Non-pressure chronic ulcer of other part of right foot with unspecified severity; B35.1 Tinea unguium; L60.3 Nail dystrophy; Z59.00 Homelessness unspecified; Z20.822 Contact with and (suspected) exposure to COVID-19; Z73.6 Limitation of activities due to disability; F29 Unspecified psychosis not due to a substance or known physiological condition; Z79.84 Long term (current) use of oral hypoglycemic drugs; F12.90 Cannabis use, unspecified, uncomplicated; F14.90 Cocaine use, unspecified, uncomplicated
CPT/HCPCS: 36415; 73630; 80164; 85025; 93005; J1200; J1630; J1815; J2060; J2358; J3490